=== PATIENT | female | born 1980 ===

== ENCOUNTER 2024-02-27 00:51 | Observation (INO) | payer BC ==
[2024-02-26] MEDS: Ondansetron 4 MG Tab.DIS ONE (21:15)
[2024-02-26] MEDS: fentaNYL 50 MCG/ML SDV IVPUSH ONE ×2 (21:33→23:07)
[2024-02-26] MEDS: Ondansetron 4 MG/2 ML SDV ONE (21:33)
[2024-02-26] MEDS: Ketorolac 30 MG/ML SDV IVPUSH ONE (23:50)
[2024-02-26] MEDS: Sodium Chloride 0.9% 10 ML Syringe FLUSH PRN (23:52)
[~2024-02-27 00:51] MED LIST: Naloxone 0.4 MG/ML SDV IVPUSH PRN; fentaNYL 50 MCG/ML SDV ONE
[2024-02-27] MEDS ORDERED: ClonazePAM 0.5 MG Tab PO PRN (01:18)
[2024-02-27] MEDS ORDERED: Levalbuterol HCl 1.25 MG/3 ML Neb NEB PRN (01:18)
[2024-02-27] MEDS ORDERED: Non-Formulary Medication 1 Each (Fexofenadine Hcl [Allegra Allergy] 60 MG Tablet) PO PRN (01:22)
[2024-02-27] MEDS: Acetaminophen 325 MG Tab PO PRN (01:39)
[2024-02-27] MEDS: Orphenadrine 60 MG/2 ML Inj IV SCH (01:41)
[2024-02-27] MEDS: Orphenadrine 60 MG/2 ML Inj IM SCH (02:32)
[2024-02-27] MEDS: Ondansetron 4 MG/2 ML SDV IVPUSH PRN (05:50)
[2024-02-27] MEDS: fentaNYL 50 MCG/ML SDV IVPUSH PRN (05:50)
[2024-02-27] MEDS: Hydroxychloroquine 200 MG Tab PO SCH (07:08)
[2024-02-27] MEDS: Loratadine 10 MG Tab PO SCH (07:09)
[2024-02-27] MEDS: Cholecalciferol (Vitamin D3) 25 MCG Tab PO SCH (07:09)
[2024-02-27] MEDS: metFORMIN 500 MG Tab PO SCH (07:10)
[2024-02-27] MEDS: Levothyroxine 112 MCG Tab PO SCH (07:10)
[2024-02-27] MEDS: Acetaminophen 500 MG Tab PO SCH (07:11)
[2024-02-27 07:12] VITALS: BP 101/67; PULSE 78
[2024-02-27] MEDS ORDERED: Non-Formulary Medication 1 Each (Etodolac [Etodolac] 400 MG Tablet) PO SCH (08:00)
[2024-02-27] MEDS ORDERED: Hydrochlorothiazide 25 MG Tab PO SCH ×2 (08:00→20:00)
[2024-02-27] MEDS: Pantoprazole 40 MG Tab.CR PO SCH (08:32)
[2024-02-27] MEDS: Ketorolac 30 MG/ML SDV IVPUSH PRN (08:38)
[2024-02-27] MEDS ORDERED: Losartan 50 MG Tab PO SCH (20:00)
[2024-02-27] MEDS ORDERED: Oxybutynin 5 MG Tab.ER PO SCH (20:00)
[2024-02-27] MEDS ORDERED: Pregabalin 75 MG Cap PO SCH (20:00)
[2024-02-27] MEDS ORDERED: Escitalopram 10 MG Tab PO SCH (20:00)
[2024-02-27] MEDS ORDERED: NALTREXONE HCL 4.5 MG PO SCH (20:00)
[2024-02-27] MEDS ORDERED: Omeprazole 20 MG Cap.CR PO SCH (20:00)
[2024-02-27] MEDS ORDERED: Magnesium Oxide 400 MG Tab PO SCH (20:00)
[2024-02-29] MEDS ORDERED: Non-Formulary Medication 1 Each (Tirzepatide [Mounjaro] 2.5 MG/0.5 ML Pen.Injctr) SUBCUT SCH (01:30)
== END 2024-02-27 10:52 | disposition home or self-care (01) ==
LOC: LL.ED 00:51 → LL.MS 00:52
PROVIDERS: ADMIT Physician Assistant; ATTEND Physician Assistant
DX: S82.141A Displaced bicondylar fracture of right tibia, initial encounter for closed fracture (principal); X58.XXXA Exposure to other specified factors, initial encounter
CPT/HCPCS: 29505; 73590-RT; 73700-RT; 96374; 96375; 96376; 99285-25; A9270-GY; J1885; J2360; J2405; J3010; J3490

== ENCOUNTER 2024-10-29 08:07 | Day surgery (SDC) | payer BC ==
[~2024-10-29 08:07] MED LIST changes: +Ketamine 500 mg/10 ML MDV ONE; +Midazolam 1 MG/ML 2 ML SDV ONE; -Naloxone 0.4 MG/ML SDV IVPUSH PRN; +Propofol 200 MG/20 ML SDV ONE; +Sodium Chloride 0.9% 10 ML Syringe FLUSH PRN; -fentaNYL 50 MCG/ML SDV ONE
[2024-10-29] MEDS: Lactated Ringers 1,000 ML IV SCH (08:35)
[2024-10-29] MEDS: 50% Dextrose in Water 50 ML Syringe IVPUSH ONE (08:53)
[2024-10-29] MEDS ORDERED: Ketamine 500 mg/10 ML MDV IV ONE (09:20)
[2024-10-29] MEDS ORDERED: Glycopyrrolate 0.2 MG/ML SDV IVPUSH ONE (09:20)
[2024-10-29] MEDS ORDERED: Ondansetron 4 MG/2 ML SDV IVPUSH ONE (09:20)
== END 2024-10-29 10:53 | disposition home or self-care (01) ==
LOC: LL.SDS 08:07
PROVIDERS: ATTEND Surgery
DX: K29.50 Unspecified chronic gastritis without bleeding (principal); K20.0 Eosinophilic esophagitis; K21.9 Gastro-esophageal reflux disease without esophagitis; Z88.8 Allergy status to other drugs, medicaments and biological substances; Z88.1 Allergy status to other antibiotic agents; Z79.899 Other long term (current) drug therapy; Z79.890 Hormone replacement therapy; Z79.84 Long term (current) use of oral hypoglycemic drugs; Z79.82 Long term (current) use of aspirin
CPT/HCPCS: 00813; 82947; J1596; J2250; J2405; J2704; J3490; J7120

== ENCOUNTER 2025-08-08 00:55 | Emergency (ER) | payer BC ==
[2025-08-08] MEDS: Ketorolac 30 MG/ML SDV IM ONE (01:16)
== END 2025-08-08 02:23 | disposition home or self-care (01) ==
LOC: LL.ED 00:55
DX: S20.219A Contusion of unspecified front wall of thorax, initial encounter (principal); E03.9 Hypothyroidism, unspecified; K21.9 Gastro-esophageal reflux disease without esophagitis; Z88.8 Allergy status to other drugs, medicaments and biological substances; Z88.1 Allergy status to other antibiotic agents; Z91.041 Radiographic dye allergy status; Z79.890 Hormone replacement therapy; Z79.84 Long term (current) use of oral hypoglycemic drugs; Z79.899 Other long term (current) drug therapy; Z79.82 Long term (current) use of aspirin; W18.30XA Fall on same level, unspecified, initial encounter
CPT/HCPCS: 71101-RT; 72070; 73030-RT; 73060-RT; 73110-RT; 96372; 99284; J1885